=== PATIENT | female | born 2000 | race Caucasian/White ===

== ENCOUNTER 2021-12-22 20:08 | Emergency (ER) | payer OTHER ==
[~2021-12-22] VITALS: Ht 165.1 cm; Wt 87.7 kg
[2021-12-22 20:08] VITALS: BP 150/73
--- NOTE | 2021-12-22 20:08 | NUR ---
[facility], PREBOOK. TAKEN TO CHAIR
--- NOTE | 2021-12-22 20:21 | NUR ---
Dr. Ontiveros examining patient.
[2021-12-22 20:40] VITALS: BP 150/73
--- NOTE | 2021-12-22 20:40 | NUR ---
PATIENT BIB [employer]. PATIENT EXAMINED BY DR. ANDRADE. PATIENT MEDICALLY CLEARED AND RELEASED IN CUSTODY IN STABLE CONDITION. ORIGINAL PRE-BOOK FORM GIVEN TO OFFICER Xander DOSHI #[id number] Patient discharged with v/s stable. Written and verbal after care instructions given and explained. Patient verbalized understanding. Police with in custody. All questions addressed prior to discharge. Advised to follow up with PMD.
== END 2021-12-22 20:40 ==
LOC: MED 20:08
DX: S00.81XA Abrasion of other part of head, initial encounter (principal); Z02.89 Encounter for other administrative examinations; X58.XXXA Exposure to other specified factors, initial encounter; Y93.89 Activity, other specified; Y92.89 Other specified places as the place of occurrence of the external cause; Y99.8 Other external cause status
CPT/HCPCS: 90471; 90715; 99283